=== PATIENT | female | born 1955 | race Caucasian/White ===

== ENCOUNTER 2019-04-09 17:17 | Emergency (ER) | payer OTHER ==
[~2019-04-09] VITALS: Ht 139.7 cm; Wt 68.0 kg
[~2019-04-09 17:17] MED LIST: BIAXIN500 MG PO; CLARITIN10 MG PO; ELMIRON100 MG PO; FLONASE0.05 MG/AC NAS; NEXIUM40 MG PO; PERCOCET 325 MG1 TA2 PO; PERCOCET 325 MG1 TA5 PO; PROTONIX40 MG PO; VICODIN 500 MG-1 TAB PO; ZOFRAN8 MG PO; [UNRECOGNIZED DRUG - OTHER] PO
[2019-04-09 17:18] VITALS: BP 146/66
[2019-04-09 18:38] LABS: BASO # 0.1 10*3/uL (0.0-0.1); BASO % 0.5 % (0.0-1.0); EOS % 0.3 % (1.0-4.0); HEMATOCRIT 39.6 % (37.0-47.0); HEMOGLOBIN 13.3 g/dl (12.0-16.0); LYMPH # 1.6 10*3/uL (1.3-4.4); LYMPH % 15.8 % (27.0-41.0); MEAN CELL VOLUME 92.7 fl (81.0-99.0); MEAN CORPUSCULAR HGB 31.1 pg (27.0-31.0); MEAN CORPUSCULAR HGB CONC 33.6 g/dl (33.0-37.0); MEAN PLATELET VOLUME 11.1 fl (9.6-12.3); MONO # 0.6 10*3/uL (0.1-1.0); NEUT # 7.7 10*3/uL (2.3-7.9); NEUT % 77.2 % (47.0-73.0); PLATELET COUNT AUTOMATED 163 10*3/uL (130-400); RED BLOOD COUNT 4.27 10*6/uL (4.10-5.10)
[2019-04-09 19:08] LABS: ALBUMIN 3.9 gm/dl (3.1-4.5); ALKALINE PHOSPHATASE 73 U/L (45-117); BUN 21 mg/dl (7-24); CHLORIDE 105 mmol/L (98-107); CREATININE 0.65 mg/dL (0.55-1.02); LIPASE 142 U/L (73-393); POTASSIUM 3.8 mmol/L (3.5-5.1); SGOT/AST 26 IU/L (3-35); SGPT/ALT 33 U/L (12-78); SODIUM 138 mmol/L (136-145); TOTAL PROTEIN 7.3 gm/dL (6.4-8.2)
[2019-04-09] MEDS ORDERED: MIRALAX119 GM PO (20:16)
== END 2019-04-09 20:45 | disposition home or self-care (01) ==
LOC: ED 17:17
PROVIDERS: Emergency Medicine
DX: K59.00 Constipation, unspecified (principal); K21.9 Gastro-esophageal reflux disease without esophagitis; Z88.0 Allergy status to penicillin; Z79.899 Other long term (current) drug therapy

== ENCOUNTER → 2022-11-29 | Outpatient (CLI) | payer MEDICARE, OTHER ==
[~2022-11-29] MED LIST changes: +MIRALAX119 GM PO
== END | disposition home or self-care (01) ==
LOC: RAD 10:41
PROVIDERS: ATTEND Orthopaedic Surgery
DX: Z96.642 Presence of left artificial hip joint (principal)

== ENCOUNTER 2023-08-04 08:23 | Emergency (ER) | payer MEDICARE, OTHER ==
[~2023-08-04] VITALS: Ht 144.7 cm; Wt 63.5 kg
[~2023-08-04 08:23] MED LIST changes: +CLOPIDOGREL75 MG PO; +DAILY VALUE1 EACH PO; +DEXAMETHASONE1 MG PO; +DEXAMETHASONE4 MG PO; +LASIX20 MG PO; +LOPRESSOR25 MG PO; +MECLIZINE HYD12.5 MG PO; +NIFEDIPINE30 MG PO; +PANTOPRAZOLE SO40 MG PO; +POTASSIUM CHLO10 MEQ PO; +PRAVASTATIN SOD40 MG PO; +TRIAMTERENE & H1 CAP PO
[2023-08-04 08:30] VITALS: BP 152/92
[2023-08-04 12:47] VITALS: BP 123/59
[2023-08-04 14:02] LABS: BILIRUBIN Negative (Negative); BLOOD 2+ (Negative); CLARITY Cloudy (Clear); COLOR Yellow (Yellow); GLUCOSE Negative (Negative); KETONE Trace (Negative); LEUKO ESTERASE 1+ (Negative); NITRITE Negative (Negative); PH 5.5 (4.5-8.0)
[2023-08-04 14:10] LABS: BACTERIA 4+; EPITHELIAL CELLS 0-2; RBC 0-2 rbc/hpf (0-2); WBC 16-20 wbc/hpf (0-5)
[2023-08-04 14:53] LABS: EOS % 0.1 % (1.0-4.0); NUCLEATED RED BLOOD CELL 0.1 10*3/uL (0.0-0.0); NUCLEATED RED BLOOD CELL 0.4 % (0.0-0.0); RED CELL DISTRI WIDTH 15.5 % (0-14.5)
[2023-08-04 15:06] LABS: ACT PARTIAL THROMBO TIME 21.8 SECONDS (20.0-32.1); INTERNATIONAL NORM RATIO 0.9 (2.0-3.5)
[2023-08-04 15:06] LABS: BASO % 0.2 % (0.0-1.0); LYMPH # 3.5 10*3/uL (1.3-4.4); LYMPH % 24.4 % (27.0-41.0); MEAN CELL VOLUME 89.8 fl (81.0-99.0); MEAN CORPUSCULAR HGB 31.8 pg (27.0-31.0); MEAN CORPUSCULAR HGB CONC 35.4 g/dl (33.0-37.0); MEAN PLATELET VOLUME 9.7 fl (9.6-12.3); MONO % 6.9 % (3.0-9.0); NEUT # 9.7 10*3/uL (2.3-7.9); NEUT % 66.7 % (47.0-73.0); PLATELET COUNT AUTOMATED 108 10*3/uL (130-400); RED BLOOD COUNT 4.12 10*6/uL (4.10-5.10); WHITE BLOOD COUNT 14.5 10*3/uL (4.8-10.8)
[2023-08-04 15:18] LABS: ALKALINE PHOSPHATASE 102 U/L (46-116); BUN 17 mg/dl (9-23); CHLORIDE 98 mmol/L (98-107); LIPASE 71 U/L (12-53); SGPT/ALT 117 U/L (10-49); TOTAL PROTEIN 6.5 gm/dL (6.0-8.0)
[2023-08-04 17:02] VITALS: BP 102/75
[2023-08-04] MEDS ORDERED: CALCIUM CITRAT1 EA18 PO (17:50)
[2023-08-04] MEDS ORDERED: DEXAMETHASONE2 MG PO (17:51)
[2023-08-04] MEDS ORDERED: B12 ACTIVE1000 MCG PO (17:51)
[2023-08-04] MEDS ORDERED: OMNICEF300 MG PO (18:17)
[2023-08-04] MEDS ORDERED: TRAMADOL HCL50 MG PO (18:17)
== END 2023-08-04 18:30 | disposition admitted as inpatient to this hospital (09) ==
LOC: ED 08:23 → EDHOLD 16:25 → 4E 17:46 → ED 18:30 → 4E 18:42
PROVIDERS: Emergency Medicine
DX: A41.9 Sepsis, unspecified organism (principal); R65.20 Severe sepsis without septic shock; N39.0 Urinary tract infection, site not specified; K59.00 Constipation, unspecified; R10.9 Unspecified abdominal pain; Z91.048 Other nonmedicinal substance allergy status; Z88.0 Allergy status to penicillin; Z79.899 Other long term (current) drug therapy; Z90.49 Acquired absence of other specified parts of digestive tract; Z90.711 Acquired absence of uterus with remaining cervical stump; Z98.51 Tubal ligation status; Z87.891 Personal history of nicotine dependence

== ENCOUNTER 2024-02-20 16:47 | Inpatient (IN) | payer MEDICARE, OTHER ==
[~2024-02-20] VITALS: Ht 144.7 cm; Wt 71.7 kg
[~2024-02-20 16:47] MED LIST changes: +B12 ACTIVE1000 MCG PO; +CALCIUM CITRAT1 EA18 PO; +DEXAMETHASONE2 MG PO; +DOXYCYCLINE HY100 M3 PO; +OMNICEF300 MG PO; +TRAMADOL HCL50 MG PO; +XARE20MG PO; +XARELTO15 M1 PO
[2024-02-20 17:03] VITALS: BP 90/50
[2024-02-20] MEDS ORDERED: SODIUM CHLORIDE 0.9% 1,000 ML IV ONE (17:10)
[2024-02-20 17:42] LABS: HEMATOCRIT 41.6 % (37.0-47.0); MEAN CELL VOLUME 88.1 fl (81.0-99.0); MEAN CORPUSCULAR HGB 26.5 pg (27.0-31.0); MEAN PLATELET VOLUME 10.2 fl (9.6-12.3); PLATELET COUNT AUTOMATED 258 10*3/uL (130-400); RED BLOOD COUNT 4.72 10*6/uL (4.10-5.10); RED CELL DISTRI WIDTH 14.1 % (0-14.5); WHITE BLOOD COUNT 18.5 10*3/uL (4.8-10.8)
[2024-02-20 17:45] LABS: MANUAL DIFF REFLEX YES
[2024-02-20] MEDS ORDERED: KEPPRA1000 MG PO (17:54)
[2024-02-20] MEDS ORDERED: POTASSIUM CHLO10 ME5 PO (17:55)
[2024-02-20 18:01] LABS: ALKALINE PHOSPHATASE 100 U/L (46-116); BUN 15 mg/dl (9-23); CHLORIDE 110 mmol/L (98-107); LIPASE 93 U/L (12-53); POTASSIUM 4.2 mmol/L (3.4-5.1); SGPT/ALT 15 U/L (5-49); TOTAL PROTEIN 6.2 gm/dL (6.0-8.0)
[2024-02-20 18:03] LABS: TOTAL CELLS COUNTED 100 #CELLS
[2024-02-20 18:05] LABS: OVALOCYTES FEW; PLATELET SUFFICIENCY NORMAL (NORMAL)
[2024-02-20 18:07] LABS: ROULEAUX SLIGHT
[2024-02-20] MEDS ORDERED: SODIUM CHLORIDE 0.9% 1,000 ML IV SCH ×2 (18:35→21:00)
[2024-02-20 19:21] VITALS: BP 121/76
[2024-02-20 19:23] LABS: BILIRUBIN Negative (Negative); BLOOD Negative (Negative); CLARITY Clear (Clear); COLOR Yellow (Yellow); GLUCOSE Negative (Negative); KETONE Trace (Negative); LEUKO ESTERASE Negative (Negative); NITRITE Negative (Negative); PH 5.5 (4.5-8.0); SPECIFIC GRAVITY 1.025 (1.001-1.030)
[2024-02-20 19:40] LABS: BACTERIA 1+
[2024-02-20 20:17] LABS: ACT PARTIAL THROMBO TIME < 20.0 SECONDS (20.0-32.1)
[2024-02-20 23:18] VITALS: BP 107/41
[2024-02-21] MEDS ORDERED: TEMAZEPAM 15 MG CAP PO PRN (00:10)
[2024-02-21] MEDS ORDERED: ACETAMINOPHEN 650 MG SUPP R PRN (00:10)
[2024-02-21] MEDS ORDERED: ACETAMINOPHEN 325 MG TAB PO PRN (00:10)
[2024-02-21] MEDS ORDERED: Acetaminophen/Hydrocodone 5 MG/325 MG TABLET PO PRN (00:10)
[2024-02-21] MEDS ORDERED: BISACODYL 10 MG SUPP R PRN (00:10)
[2024-02-21] MEDS ORDERED: BISACODYL 5 MG TAB PO PRN (00:10)
[2024-02-21] MEDS ORDERED: Magnesium Hydroxide 30 ML UDC PO PRN (00:10)
[2024-02-21 01:00] VITALS: BP 117/44
[2024-02-21] MEDS ORDERED: PROCHLORPERAZIN10 MG PO (01:30)
[2024-02-21] MEDS ORDERED: SODIUM CHLORIDE 0.9% 1,000 ML IV ONE (01:55)
[2024-02-21] MEDS ORDERED: Prochlorperazine Maleate 10 MG TAB PO PRN (01:55)
[2024-02-21 05:50] LABS: BUN 13 mg/dl (9-23); CHLORIDE 112 mmol/L (98-107); POTASSIUM 4.5 mmol/L (3.4-5.1)
[2024-02-21 06:57] LABS: HEMATOCRIT 36.2 % (37.0-47.0); MEAN CORPUSCULAR HGB 26.1 pg (27.0-31.0); MEAN PLATELET VOLUME 10.7 fl (9.6-12.3); RED BLOOD COUNT 4.02 10*6/uL (4.10-5.10); RED CELL DISTRI WIDTH 14.5 % (0-14.5); WHITE BLOOD COUNT 23.6 10*3/uL (4.8-10.8)
[2024-02-21 07:00] LABS: MANUAL DIFF REFLEX YES; PLATELET COUNT AUTOMATED 169 10*3/uL (130-400)
[2024-02-21 07:39] LABS: BURR CELLS FEW; PLATELET SUFFICIENCY NORMAL (NORMAL); POLYCHROMASIA SLIGHT; TOTAL CELLS COUNTED 100 #CELLS
[2024-02-21 08:00] VITALS: BP 115/20; BP 120/50
[2024-02-21] MEDS ORDERED: CYANOCOBALAMIN 500 MCG TAB PO SCH (10:00)
[2024-02-21] MEDS ORDERED: Clopidogrel Hydrogen Sulfate 75 MG TAB PO SCH (10:00)
[2024-02-21] MEDS ORDERED: LEVETIRACETAM 500 MG TAB PO SCH (10:00)
[2024-02-21] MEDS ORDERED: CALCIUM CARBONATE/VITAMIN D3 500 MG/200 IU TABLET PO SCH (10:00)
[2024-02-21] MEDS ORDERED: Pantoprazole Sodium 40 MG TAB PO SCH (10:00)
[2024-02-21] MEDS ORDERED: Enoxaparin Sodium 40 MG/0.4 ML SYR SC SCH (10:00)
[2024-02-21 12:00] VITALS: BP 98/60
[2024-02-21] MEDS ORDERED: LOPRESSOR25 MG PO (13:07)
[2024-02-21] MEDS ORDERED: PRAVASTATIN SODIUM 40 MG TAB PO SCH (22:00)
[2024-02-21] MEDS ORDERED: ATORVASTATIN CALCIUM 10 MG TAB PO SCH (22:00)
== END 2024-02-21 14:29 | disposition home or self-care (01) | DRG 74 ==
LOC: ED 16:47 → 5E 22:18 → EDHOLD 22:18 → 5E 02-21 00:03
PROVIDERS: Emergency Medicine; Internal Medicine; Student in an Organized Health Care Education/Training Program; ADMIT Internal Medicine; ATTEND Internal Medicine
DX: G90.8 Other disorders of autonomic nervous system (principal); E87.20 Acidosis, unspecified; C34.90 Malignant neoplasm of unspecified part of unspecified bronchus or lung; I95.1 Orthostatic hypotension; R54 Age-related physical debility; R73.9 Hyperglycemia, unspecified; R82.71 Bacteriuria; E87.8 Other disorders of electrolyte and fluid balance, not elsewhere classified; D72.9 Disorder of white blood cells, unspecified; E78.5 Hyperlipidemia, unspecified; K21.9 Gastro-esophageal reflux disease without esophagitis; I10 Essential (primary) hypertension; Z90.49 Acquired absence of other specified parts of digestive tract; Z90.710 Acquired absence of both cervix and uterus; Z98.51 Tubal ligation status; Z87.891 Personal history of nicotine dependence; Z98.1 Arthrodesis status; Z88.0 Allergy status to penicillin; Z88.8 Allergy status to other drugs, medicaments and biological substances; Z79.899 Other long term (current) drug therapy